=== PATIENT | male | born 1990 | race Caucasian/White ===

== ENCOUNTER → 2024-06-14 08:33 | Outpatient (BNVA) | payer BC, SELFPAY | PROVIDERS: PCP Nurse Practitioner; Referring Provider Nurse Practitioner; Visit Provider Nurse Practitioner | DX: R53.83 Other fatigue (principal) | CPT/HCPCS: 80053; 84402; 84403; 84443 ==

== ENCOUNTER 2024-08-12 16:15 | Emergency (ER) | payer BC, SELFPAY ==
[2024-08-12 16:18] VITALS: BP 141/79; PULSE 100; RESP 16; TEMP 37; O2SAT 98; BMI 32.1
--- NOTE | 2024-08-12 16:36 | ED_ITS ---
Documented by User: Param Heredia MD 08/13/24 11:37 HPI - Abdominal Pain 2 General: Chief Complaint: Abdominal Pain Stated Complaint: abd pain Time Seen by Provider: 08/12/24 16:30 Source: patient Mode of arrival: ambulatory Limitations: no limitations History of Present Illness: 33-year male states he started having ab dominal pain last night. States he ate some gas station food and started having pain after he states it comes in waves worst pains been 8 out of 10. States it is in his upper abdomen. Has had some nausea denies vomiting or fever denies any chest pain Associated Symptoms: Reports nausea; Denies chills, diarrhea, fever(s) and vomiting Related Data Previous Rx's ?Medication ?Instructions ?Recorded hydrocodone 5 mg-acetaminophen 325 1 tab PO Q8H PRN pa in #7 tabs 08/12/24 mg tablet lansoprazole 30 mg capsule,delayed 30 mg PO DAILY #30 caps 08/12/24 release (Prevacid) ondansetron 4 mg disintegrating 4 mg PO Q6H PRN nausea and 08/12/24 tablet vomiting #14 tabs Allergies Allergy/AdvReac Type Severity Reaction Status Date / Time No Known Allergies Allergy Unverified 08/12/24 16:18 Review of Systems 2 Const: Denies: fever(s), chills, body aches or change in appetite ENMT: Denies: throat pain or dental pain Card: Denies: chest pain Resp: Denies: dyspnea GI: Reports: abdominal pain and nausea; Denies: vomiting or diarrhea Musc: Denies: neck pain or back pain Skin/Breast: Denies: rash Neuro: Denies: headache(s) PFS ED 2 PFSH: Social History Smoking and tobacco/nicotine status: never used tobacco/nicotine Physical Exam 2 Const: COMMON NORMALS: no acute distress, patient oriented x3 and healthy appearing HENMT: COMMON NORMALS: normocephalic and atraumatic HEAD & SCALP: n ormocephalic and atraumatic Neck/C-Spine: COMMON NORMALS: full ROM and supple Chest: COMMONS NORMALS: normal inspection of the chest Resp: COMMON NORMALS: normal respiratory effort, No retractions, No use of accessory muscles and clear to auscultation bilaterally AUSCULTATION: clear to auscultation bilaterally Cardio: COMMON NORMALS: regular rate, regular rhythm and No murmurs present (Cardio) RATE: regular rate RHYTHM: regular rhythm GI: COMMON NORMALS: Normal to inspection, nondistended, normoactive bowel sounds present, Soft to palpation and no masses PALPATION: Yes Soft to palpation OTHER: epigastric tenderness Extremity: COMMON NORMALS: normal to inspection and full ROM Neuro: COMMON NORMALS: patient oriented x3, moves all extremities and no focal motor deficits Psych: COMMON NORMALS: mental status grossly normal, Normal thought process present and cooperative THOUGHT PROCESS: Normal thought process present Skin: COMMON NORMALS: no rashes or lesions noted and no wounds GENERAL SKIN EXAM: no rashes or lesions noted Course 2 Vital Signs: Vital signs: Vital Signs Temperature 98.6 F 08/12/24 16:18 Pulse Rate 85 08/12/24 20:27 Respiratory Rate 16 08/12/24 20:27 Blood Pressure 138/80 08/12/24 20:27 Pulse Oximetry 98 08/12/24 20:27 MDM - Abdominal Pain Lab Data 08/12/24 16:51 08/12/24 16:51 Labs/Radiology: Radiology Impressions Gallbladder Ultrasound 08/12/24 16:48 IMPRESSION: No cholelithiasis or cholecystitis. Abdomen/Pelvis CT 08/12/24 17:34 IMPRESSION: 1. No bowel obstruction or inflammatory process associated with the bowel. 2. No free air or significant free fluid in the abdomen or pelvis. 3. The appendix is not visualized but there are no secondary signs of acute appendicitis. 4. Multiple enlarged mesenteric lymph nodes in the right lower quadrant measuring up to 10 mm in short axis. These may be reactive in nature. Laboratory Results WBC 17.44 10^3/uL (3.29-11.43) H 08/12/24 16:51 RBC 4.94 10^6/uL (3.85-5.65) 08/12/24 16:51 Hgb 13.90 g/dL (11.27-16.99) 08/12/24 16:51 Hct 41.9 % (37-53) 08/12/24 16:51 MCV 84.8 fl (82-101) 08/12/24 16:51 MCH 28.1 pg (27-33) 08/12/24 16:51 MCHC 33.2 g/dL (30-55) 08/12/24 16:51 RDW 13.1 % (12.1-15.1) 08/12/24 16:51 Plt Count 322 10^3/cmm (157-399) 08/12/24 16:51 MPV 9.0 fL (7.4-10.4) 08/12/24 16:51 Neut % (Auto) 80.6 % 08/12/24 16:51 Lymph % (Auto) 10.4 % 08/12/24 16:51 [place] % (Auto) 7.3 % 08/12/24 16:51 Eos % (Auto) 1.0 % 08/12/24 16:51 Baso % (Auto) 0.3 % 08/12/24 16:51 Neut # (Auto) 14.05 10^3/uL (1.8-7.7) H 08/12/24 16:51 Lymph # (Auto) 1.8 10^3/uL (0.8-4.8) 08/12/24 16:51 [place] # (Auto) 1.3 10^3/uL (0.2-0.9) H 08/12/24 16:51 Eos # (Auto) 0.2 10^3/uL (0.0-0.8) 08/12/24 16:51 Baso # (Auto) 0.1 10^3/uL (0.0-0.1) 08/12/24 16:51 Nucleated RBC % (auto) 0 % 08/12/24 16:51 Nucleated RBCs # 0.0 /100WBC 08/12/24 16:51 Sodium 137 mmol/L (136-145) 08/12/24 16:51 Potassium 3.8 mmol/L (3.5-5.1) 08/12/24 16:51 Chloride 102 mmol/L (98-107) 08/12/24 16:51 Carbon Dioxide 19 mmol/L (22-29) L 08/12/24 16:51 Anion Gap 19.8 (5-19) H 08/12/24 16:51 BUN 16 mg/dL (6-20) 08/12/24 16:51 Creatinine 0.8 mg/dL (0.7-1.2) 08/12/24 16:51 GFR Calculation 111.3 mL/min (90-130) 08/12/24 16:51 Glucose 95 mg/dL (65-115) 08/12/24 16:51 Calculated Osmolality 285 mOsm/kg (285-295) 08/12/24 16:51 Calcium 9.2 mg/dL (8.5-10.5) 08/12/24 16:51 Total Bilirubin 0.7 mg/dL (0.15-1.2) 08/12/24 16:51 AST 23 U/L (0-40) 08/12/24 16:51 ALT 27 U/L (0-41) 08/12/24 16:51 Alkaline Phosphatase 116 U/L (40-130) 08/12/24 16:51 Total Protein 7.9 g/dL (6.6-8.7) 08/12/24 16:51 Albumin 4.4 g/dL (3.5-5.2) 08/12/24 16:51 Globulin 3.5 g/dL (1.3-4.6) 08/12/24 16:51 Lipase 23 U/L (13-60) 08/12/24 16:51 Discharge Plan Discharge Patient Disposition: Home Clinical Impression: Abdominal pain, Acute mesenteric adenitis Condition: Stable Prescriptions: New hydrocodone-acetaminophen 5-325 mg tablet 1 tab PO Q8H PRN (Reason: pain) Qty: 7 0RF ondansetron 4 mg tablet,disintegrating 4 mg PO Q6H PRN (Reason: nausea and vomiting) Qty: 14 0RF lansoprazole [Prevacid] 30 mg capsule,delayed release(DR/EC) 30 mg PO DAILY Qty: 30 0RF Discharge Orders: Discharge ED (Routine); Ordered 08/12/24 Ordered By: Braden Lynne Referrals: Angela Musa FNP [Primary Care Provider, Nurse Practitioner] Patient Instructions: Abdominal Pain (ED), Mesenteric Adenitis (ED), Opioid Safety, Pain Management Activity Restrictions/Additional Instructions: Return for problems. 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 Documented by User: Braden Lynne, 08/12/24 22:54 HPI - Abdominal Pain 2 General: Chief Complaint: Abdominal Pain Stated Complaint: abd pain Time Seen by Provider: 08/12/24 16:30 Related Data Previous Rx's ?Medication ?Instructions ?Recorded hydrocodone 5 mg-acetaminophen 325 1 tab PO Q8H PRN pa in #7 tabs 08/12/24 mg tablet lansoprazole 30 mg capsule,delayed 30 mg PO DAILY #30 caps 08/12/24 release (Prevacid) ondansetron 4 mg disintegrating 4 mg PO Q6H PRN nausea and 08/12/24 tablet vomiting #14 tabs Allergies Allergy/AdvReac Type Severity Reaction Status Date / Time No Known Allergies Allergy Unverified 08/12/24 16:18 PFSH ED 2 PFSH: Social History Smoking and tobacco/nicotine status: never used tobacco/nicotine Course 2 Vital Signs: Vital signs: Vital Signs Temperature 98.6 F 08/12/24 16:18 Pulse Rate 85 08/12/24 20:27 Respiratory Rate 16 08/12/24 20:27 Blood Pressure 138/80 08/12/24 20:27 Pulse Oximetry 98 08/12/24 20:27 MDM - Abdominal Pain Medical Decision Making Patient checked out to me by Dr. Heredia at shift change. His vitals are stable. His white blood cell count however 17.4. Other laboratory including lipase, liver enzymes are benign. Ultrasound of the gallbladder is negative. Abdominal CT shows enlarged mesenteric lymph nodes in the right lower quadrant they are likely reactive. The appendix is not visualized. There is no free air or significant fluid. no acute findings. He will be allowed home. Short course of pain medication, antiemetic. Lab Data 08/12/24 16:51 08/12/24 16:51 Labs/Radiology: Radiology Impressions Gallbladder Ultrasound 08/12/24 16:48 IMPRESSION: No cholelithiasis or cholecystitis. Abdomen/Pelvis CT 08/12/24 17:34 IMPRESSION: 1. No bowel obstruction or inflammatory process associated with the bowel. 2. No free air or significant free fluid in the abdomen or pelvis. 3. The appendix is not visualized but there are no secondary signs of acute appendicitis. 4. Multiple enlarged mesenteric lymph nodes in the right lower quadrant measuring up to 10 mm in short axis. These may be reactive in nature. Laboratory Results WBC 17.44 10^3/uL (3.29-11.43) H 08/12/24 16:51 RBC 4.94 10^6/uL (3.85-5.65) 08/12/24 16:51 Hgb 13.90 g/dL (11.27-16.99) 08/12/24 16:51 Hct 41.9 % (37-53) 08/12/24 16:51 MCV 84.8 fl (82-101) 08/12/24 16:51 MCH 28.1 pg (27-33) 08/12/24 16:51 MCHC 33.2 g/dL (30-55) 08/12/24 16:51 RDW 13.1 % (12.1-15.1) 08/12/24 16:51 Plt Count 322 10^3/cmm (157-399) 08/12/24 16:51 MPV 9.0 fL (7.4-10.4) 08/12/24 16:51 Neut % (Auto) 80.6 % 08/12/24 16:51 Lymph % (Auto) 10.4 % 08/12/24 16:51 [place] % (Auto) 7.3 % 08/12/24 16:51 Eos % (Auto) 1.0 % 08/12/24 16:51 Baso % (Auto) 0.3 % 08/12/24 16:51 Neut # (Auto) 14.05 10^3/uL (1.8-7.7) H 08/12/24 16:51 Lymph # (Auto) 1.8 10^3/uL (0.8-4.8) 08/12/24 16:51 [place] # (Auto) 1.3 10^3/uL (0.2-0.9) H 08/12/24 16:51 Eos # (Auto) 0.2 10^3/uL (0.0-0.8) 08/12/24 16:51 Baso # (Auto) 0.1 10^3/uL (0.0-0.1) 08/12/24 16:51 Nucleated RBC % (auto) 0 % 08/12/24 16:51 Nucleated RBCs # 0.0 /100WBC 08/12/24 16:51 Sodium 137 mmol/L (136-145) 08/12/24 16:51 Potassium 3.8 mmol/L (3.5-5.1) 08/12/24 16:51 Chloride 102 mmol/L (98-107) 08/12/24 16:51 Carbon Dioxide 19 mmol/L (22-29) L 08/12/24 16:51 Anion Gap 19.8 (5-19) H 08/12/24 16:51 BUN 16 mg/dL (6-20) 08/12/24 16:51 Creatinine 0.8 mg/dL (0.7-1.2) 08/12/24 16:51 GFR Calculation 111.3 mL/min (90-130) 08/12/24 16:51 Glucose 95 mg/dL (65-115) 08/12/24 16:51 Calculated Osmolality 285 mOsm/kg (285-295) 08/12/24 16:51 Calcium 9.2 mg/dL (8.5-10.5) 08/12/24 16:51 Total Bilirubin 0.7 mg/dL (0.15-1.2) 08/12/24 16:51 AST 23 U/L (0-40) 08/12/24 16:51 ALT 27 U/L (0-41) 08/12/24 16:51 Alkaline Phosphatase 116 U/L (40-130) 08/12/24 16:51 Total Protein 7.9 g/dL (6.6-8.7) 08/12/24 16:51 Albumin 4.4 g/dL (3.5-5.2) 08/12/24 16:51 Globulin 3.5 g/dL (1.3-4.6) 08/12/24 16:51 Lipase 23 U/L (13-60) 08/12/24 16:51 All radiology interpretation(s) finalized by discharge Discharge Plan Discharge Patient Disposition: Home Clinical Impression: Abdominal pain, Acute mesenteric adenitis Condition: Stable Prescriptions: New hydrocodone-acetaminophen 5-325 mg tablet 1 tab PO Q8H PRN (Reason: pain) Qty: 7 0RF ondansetron 4 mg tablet,disintegrating 4 mg PO Q6H PRN (Reason: nausea and vomiting) Qty: 14 0RF lansoprazole [Prevacid] 30 mg capsule,delayed release(DR/EC) 30 mg PO DAILY Qty: 30 0RF Discharge Orders: Discharge ED (Routine); Ordered 08/12/24 Ordered By: Braden Lynne Referrals: Angela Musa FNP [Primary Care Provider, Nurse Practitioner] Patient Instructions: Abdominal Pain (ED), Mesenteric Adenitis (ED), Opioid Safety, Pain Management Activity Restrictions/Additional Instructions: Return for problems. 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
--- NOTE | 2024-08-12 16:48 | USR_ITS ---
PROCEDURE INFORMATION: Exam: US Abdomen, Limited; Right Upper Quadrant Exam date and time: 08/12/2024 6:51 PM Age: 33 years old Clinical indication: Abdominal pain; Epigastric; HX of appendectomy; Additional info: Abd pain TECHNIQUE: Imaging protocol: Real time ultrasound of the abdomen with image documentation. Limited exam focused on the right upper quadrant. COMPARISON: CT abdomen pelvis w con* [id number] 08/12/2024 5:49 PM FINDINGS: Liver: Normal. No masses. Gallbladder: No stone or sludge in the gallbladder. No gallbladder wall thickening. Biliary ducts: The common bile duct is normal in size measuring 5 mm. Pancreas: Visualized pancreas is unremarkable. Right kidney: The right kidney measures 9.8 cm in length with no hydronephrosis or renal calculus. Aorta: The visualized IVC and aorta are unremarkable. Portal venous: The main portal vein is patent with appropriate direction of flow. US/US gall bladder [id number] IMPRESSION: No cholelithiasis or cholecystitis.
[2024-08-12] MEDS: ondansetron 2 mg/ML SDV 2 mL 4 MG IVP ×2 (16:59→20:03)
[2024-08-12] MEDS: lidocaine 2% viscous 15 ML, aluminum-mag hydrox-simethicon 30 ML, sucralfate oral liq 1 GM PO (16:59)
[2024-08-12 17:07] LABS: Basophils # 0.1 10^3/uL (0.0-0.1); Basophils % 0.3 %; Eosinophils # 0.2 10^3/uL (0.0-0.8); Hematocrit 41.9 % (37-53); Lymphocytes # 1.8 10^3/uL (0.8-4.8); Lymphocytes % 10.4 %; Mean Corpuscular HGB Conc 33.2 g/dL (30-55); Mean Corpuscular Hemoglobin 28.1 pg (27-33); Mean Corpuscular Volume 84.8 fl (82-101); Monocytes # 1.3 10^3/uL (0.2-0.9); Monocytes % 7.3 %; Neutrophils # 14.05 10^3/uL (1.8-7.7); Neutrophils % 80.6 %; Nucleated Red Blood Cells % 0 %; Platelet Count 322 10^3/cmm (157-399); Red Blood Count 4.94 10^6/uL (3.85-5.65); Red Cell Distribution Width 13.1 % (12.1-15.1); White Blood Count 17.44 10^3/uL (3.29-11.43)
[2024-08-12 17:23] LABS: Alanine Aminotransferase 27 U/L (0-41); Albumin Level 4.4 g/dL (3.5-5.2); Alkaline Phosphatase 116 U/L (40-130); Anion Gap 19.8 (5-19); Aspartate Amino Transferase 23 U/L (0-40); Blood Urea Nitrogen 16 mg/dL (6-20); Calcium 9.2 mg/dL (8.5-10.5); Carbon Dioxide 19 mmol/L (22-29); Chloride 102 mmol/L (98-107); Creatinine Clr Calc Pharmacy 161.4481; Globulin 3.5 g/dL (1.3-4.6); Glomerular Filtration Rate 111.3 mL/min (90-130); Glucose 95 mg/dL (65-115); Lipase 23 U/L (13-60); Osmolality Calculated 285 mOsm/kg (285-295); Potassium 3.8 mmol/L (3.5-5.1); Sodium 137 mmol/L (136-145); Total Bilirubin 0.7 mg/dL (0.15-1.2); Total Protein 7.9 g/dL (6.6-8.7)
--- NOTE | 2024-08-12 17:34 | CTR_ITS ---
PROCEDURE INFORMATION: Exam: CT Abdomen And Pelvis With Contrast Exam date and time: 08/12/2024 5:49 PM Age: 33 years old Clinical indication: Abdominal pain; Prior surgery; Surgery date: 6+ months; Surgery type: Appy; C/O epigastric pain TECHNIQUE: Imaging protocol: Computed tomography of the abdomen and pelvis with contrast. Radiation optimization: All CT scans at this facility use at least one of these dose optimization techniques: automated exposure control; mA and/or kV adjustment per patient size (includes targeted exams where dose is matched to clinical indication); or iterative reconstruction. Contrast material: OMNI 350; Contrast volume: 100 ml; Contrast route: INTRAVENOUS (IV); COMPARISON: No relevant prior studies available. RADIATION DOSE METRICS: Total DLP (mGy-cm): 883.37 FINDINGS: Liver: Normal. No mass. Gallbladder and biliary ducts: Normal. No calcified stones. No ductal dilation. Pancreas: Normal. No ductal dilation. Spleen: Normal. No splenomegaly. Adrenal glands: Normal. No mass. Kidneys and ureters: Normal. No hydronephrosis. Stomach and bowel: Unremarkable. No obstruction. No mucosal thickening. Appendix: The appendix is absent. Intraperitoneal space: Unremarkable. No free air. No significant fluid collection. Vasculature: Unremarkable. No abdominal aortic aneurysm. Lymph nodes: Multiple enlarged mesenteric lymph nodes in the right lower quadrant measuring up to 10 mm in short axis. These may be reactive in nature. Urinary bladder: Unremarkable as visualized. Reproductive: Unremarkable as visualized. Bones/joints: Unremarkable. No acute fracture. Soft tissues: Unremarkable. CT/CT abdomen pelvis w con* [id number] IMPRESSION: 1. No bowel obstruction or inflammatory process associated with the bowel. 2. No free air or significant free fluid in the abdomen or pelvis. 3. The appendix is not visualized but there are no secondary signs of acute appendicitis. 4. Multiple enlarged mesenteric lymph nodes in the right lower quadrant measuring up to 10 mm in short axis. These may be reactive in nature.
[2024-08-12] MEDS: iohexol 350 mg/mL 500 mL Btl (per mL) IV (17:54)
[2024-08-12 18:23] VITALS: PULSE 97; O2SAT 99
[2024-08-12 20:00] VITALS: BP 129/86; PULSE 91; RESP 18; O2SAT 99
[2024-08-12] MEDS: ketorolac 30 mg/mL INJ IVP (20:04)
[2024-08-12 20:06] VITALS: RESP 18
[2024-08-12] MEDS: morphine 4 mg/mL SDV 1 mL IVP (20:06)
[2024-08-12 20:27] VITALS: BP 138/80; PULSE 85; RESP 16; O2SAT 98
== END 2024-08-12 20:28 | disposition home or self-care (01) ==
PROVIDERS: Emergency Medicine; Emergency Provider Emergency Medicine; PCP Nurse Practitioner
DX: R10.9 Unspecified abdominal pain (principal); I88.0 Nonspecific mesenteric lymphadenitis
CPT/HCPCS: 36415; 74177; 76705; 80053; 83690; 85025; 96374; 96375; 96376; 99285; J1885; J2270; J2405; J9999